=== PATIENT | male | born 1990 | race Two or more races ===

== ENCOUNTER 2022-12-28 08:35 | Inpatient (IN) | payer OTHER ==
[~2022-12-28] VITALS: Ht 167.6 cm; Wt 70.0 kg
[2022-12-28 09:42] LABS: HEMATOCRIT 47.4 % (41-53); HEMOGLOBIN 16.2 g/dL (13.5-17.5); MEAN CORPUSCULAR HEMOGLOBIN 29.3 pg (26.0-34.0); MEAN CORPUSCULAR HGB CONC 34.1 G/dL (31.0-37.0); MEAN CORPUSCULAR VOLUME 86 fL (80-100); PLATELET COUNT (AUTO) 162 K/uL (150-450); RED BLOOD CELL COUNT(AUTO) 5.53 MIL/uL (4.50-5.90); RED CELL DISTRIBUTION WIDTH 13.3 % (11.5-14.5); WHITE BLOOD COUNT (AUTO) 25.3 K/uL (4.5-11.0)
[2022-12-28 09:51] LABS: ANION GAP 13 mmol/L (8-16); CALCIUM, TOTAL 9.1 mg/dL (8.8-10.5); CARBON DIOXIDE 22 mmol/L (22-29); CHLORIDE 94 mmol/L (98-107); CREATININE 1.15 mg/dL (0.60-1.30); GLOMERULAR FILTR. RATE CALC > 60 mL/min (>60); GLUCOSE,RANDOM 137 mg/dL (70-110); POTASSIUM 4.2 mmol/L (3.5-5.1); SODIUM SERUM 129 mmol/L (136-145); UREA NITROGEN, BLOOD 18 mg/dL (7-18)
[2022-12-28 09:55] LABS: INR 1.1 (0.9-1.1); PROTHROMBIN TIME 11.4 SEC (9.4-11.6)
[2022-12-28 09:57] LABS: ALANINE AMINOTRANSFERASE 88 U/L (12-78); ALBUMIN 3.5 g/dL (3.4-5.0); ALKALINE PHOSPHATASE 101 U/L (46-116); ASPARTATE AMINOTRANSFERASE 24 U/L (15-37); BILIRUBIN,TOTAL 1.3 mg/dL (0.1-1.0); CREATINE KINASE, TOTAL ONLY 57 U/L (39-308); TOTAL PROTEIN, SERUM 7.7 g/dL (6.4-8.2)
[2022-12-28 09:58] LABS: B-TYPE NATRIURETIC PEPTIDE 10 pg/mL (0-100)
[2022-12-28 10:06] LABS: BAND NEUTROPHILS % (MANUAL) 9 % (0-5); LYMPHOCYTES % (MANUAL) 7 % (22-44); MONOCYTES % (MANUAL) 8 % (2-9); SEGMENTED NEUTROPHILS % 76 % (40-70); TOTAL CELLS COUNTED 100
[2022-12-28 10:15] LABS: TROPONIN I-HIGH SENSITIVITY Less Than 4 ng/L (<76)
[2022-12-28 10:32] LABS: COVID AG,FIA SOURCE NASAL SWAB
[2022-12-28] MEDS ORDERED: SODIUM CHLORIDE 0.9% 1,000 ML IV ONE (10:35)
[2022-12-28 11:01] LABS: D-DIMER 2.7 mg/L FEU (0.00-0.50)
[2022-12-28 11:03] LABS: INFLUENZA TYPE A NEGATIVE FOR TYPE A (NEGATIVE); INFLUENZA TYPE B NEGATIVE FOR TYPE B (NEGATIVE)
[2022-12-28 11:04] LABS: SARS-COV2 (COVID) ANTIGEN,FIA Negative (Negative)
[2022-12-28] MEDS ORDERED: SODIUM CHLORIDE 0.9% 100 ML ONE (11:05)
[2022-12-28] MEDS ORDERED: IOHEXOL 350 MG/ML 100 ML VIAL ONE (11:05)
[2022-12-28] MEDS ORDERED: *CLINICAL-LEVOFLOXACIN IVPB DOSING CLINICAL ONE (12:45)
[2022-12-28] MEDS ORDERED: MAGNESIUM HYDROXIDE SUSPENSION 30 ML UDCUP PO PRN (12:45)
[2022-12-28] MEDS ORDERED: BISACODYL 10 MG RECTAL RECTAL SUPPOSITORY PR PRN (12:45)
[2022-12-28] MEDS ORDERED: ZOLPIDEM TARTRATE 5 MG TABLET PO PRN (12:45)
[2022-12-28] MEDS: LEVOFLOXACIN 750 MG/D5% WATER 150 ML IV SCH (12:56)
[2022-12-28] MEDS: MORPHINE SULFATE 2 MG/ML SYRINGE IVP PRN ×2 (12:57→18:14)
[2022-12-28] MEDS: HEPARIN SODIUM,PORCINE 5,000 UNITS/ML VIAL SQ SCH (16:33)
[2022-12-28 16:54] LABS: APPEARANCE,URINE CLEAR (CLEAR); BILIRUBIN,URINE NEGATIVE (NEGATIVE); COLOR,URINE YELLOW (YELLOW); GLUCOSE, URINE (UA) NEGATIVE (NEGATIVE); LEUKOCYTE ESTERASE ,URINE NEGATIVE (NEGATIVE); NITRATE,URINE NEGATIVE (NEGATIVE); OCCULT BLOOD,URINE NEGATIVE (NEGATIVE); PROTEIN,URINE 30-70 mg/dL (NEGATIVE); UROBILINOGEN,URINE <=1.0 mg/dL (<=1.0)
[2022-12-28 17:00] LABS: SPECIFIC GRAVITIY, URINE > 1.050 (1.003-1.030)
[2022-12-28 17:07] VITALS: BP 124/73; PULSE 121; RESP 22; TEMP 102.7
[2022-12-28] MEDS: ACETAMINOPHEN 325 MG TABLET PO PRN (17:13)
[2022-12-28 19:58] VITALS: BP 115/73; PULSE 104; RESP 20; TEMP 99.4
[2022-12-28] MEDS: DOCUSATE SODIUM 100 MG CAPSULE PO SCH (20:13)
[2022-12-28] MEDS: HYDROCODONE/ACETAMINOPHEN 5-325 MG TABLET PO PRN (20:13)
[2022-12-29] VITALS (7 sets, daily range): BP systolic 116–141; BP diastolic 64–85; PULSE 99–118; RESP 18–30; TEMP 98.6–102.9; O2SAT 95
[2022-12-29] MEDS: HEPARIN SODIUM,PORCINE 5,000 UNITS/ML VIAL SQ SCH ×3 (00:22→15:49)
[2022-12-29] MEDS: ACETAMINOPHEN 325 MG TABLET PO PRN ×2 (00:23→18:24)
[2022-12-29] MEDS: MORPHINE SULFATE 2 MG/ML SYRINGE IVP PRN ×5 (00:28→21:06)
[2022-12-29 06:13] LABS: BASOPHILS % (AUTO) 0.1 % (0.0-2.0); EOSINOPHILS % (AUTO) 0 % (1.0-6.0); HEMATOCRIT 43.4 % (41-53); HEMOGLOBIN 14.8 g/dL (13.5-17.5); LYMPHOCYTES # (AUTO) 1.7 K/uL (1.0-4.8); LYMPHOCYTES % (AUTO) 7.3 % (22.0-44.0); MEAN CORPUSCULAR HEMOGLOBIN 29.8 pg (26.0-34.0); MEAN CORPUSCULAR HGB CONC 34.2 G/dL (31.0-37.0); MEAN CORPUSCULAR VOLUME 87 fL (80-100); MONOCYTES # (AUTO) 2.4 K/uL (0.1-1.0); MONOCYTES % (AUTO) 10.7 % (2.0-9.0); NEUTROPHILS # (AUTO) 18.7 K/uL (1.8-7.7); NEUTROPHILS % (AUTO) 81.9 % (40.0-70.0); PLATELET COUNT (AUTO) 150 K/uL (150-450); RED BLOOD CELL COUNT(AUTO) 4.97 MIL/uL (4.50-5.90); WHITE BLOOD COUNT (AUTO) 22.9 K/uL (4.5-11.0)
[2022-12-29 06:24] LABS: ANION GAP 7 mmol/L (8-16); CALCIUM, TOTAL 8.9 mg/dL (8.8-10.5); CARBON DIOXIDE 27 mmol/L (22-29); CHLORIDE 96 mmol/L (98-107); CREATININE 1.03 mg/dL (0.60-1.30); GLOMERULAR FILTR. RATE CALC > 60 mL/min (>60); GLUCOSE,RANDOM 113 mg/dL (70-110); POTASSIUM 4.6 mmol/L (3.5-5.1); SODIUM SERUM 130 mmol/L (136-145); UREA NITROGEN, BLOOD 17 mg/dL (7-18)
[2022-12-29] MEDS: DOCUSATE SODIUM 100 MG CAPSULE PO SCH ×2 (08:34→21:06)
[2022-12-29] MEDS: PANTOPRAZOLE SODIUM 40 MG DR TABLET PO SCH (08:34)
[2022-12-29] MEDS: HYDROCODONE/ACETAMINOPHEN 5-325 MG TABLET PO PRN (08:38)
[2022-12-29] MEDS ORDERED: SODIUM CHLORIDE 3% 15 ML NEB SOLUTION NEB ONE (11:09)
[2022-12-29] MEDS ORDERED: SODIUM CHLORIDE 0.9% 250 ML IV ONE (12:31)
[2022-12-29] MEDS: LEVOFLOXACIN 750 MG/D5% WATER 150 ML IV SCH (12:46)
[2022-12-29] MEDS ORDERED: SODIUM CHLORIDE 0.9% 100 ML ONE (13:19)
[2022-12-29] MEDS ORDERED: IOHEXOL 300 MG/ML 100 ML VIAL ONE (13:19)
[2022-12-29 16:52] LABS: MTB PCR w/Rif. Resistance-SPUT NOT DETECTED (Not Detectd)
[2022-12-30] VITALS (12 sets, daily range): BP systolic 113–147; BP diastolic 56–97; PULSE 95–152; RESP 20–60; TEMP 98.7–102.5; O2SAT 95–99
[2022-12-30] MEDS: HEPARIN SODIUM,PORCINE 5,000 UNITS/ML VIAL SQ SCH ×3 (00:19→16:26)
[2022-12-30] MEDS: ACETAMINOPHEN 325 MG TABLET PO PRN ×3 (00:44→20:19)
[2022-12-30] MEDS: MORPHINE SULFATE 2 MG/ML SYRINGE IVP PRN ×5 (00:44→22:41)
[2022-12-30] MEDS: HYDROCODONE/ACETAMINOPHEN 5-325 MG TABLET PO PRN (05:34)
[2022-12-30 06:58] LABS: BASOPHILS % (AUTO) 0.1 % (0.0-2.0); EOSINOPHILS % (AUTO) 0.1 % (1.0-6.0); HEMATOCRIT 41.1 % (41-53); HEMOGLOBIN 14.2 g/dL (13.5-17.5); LYMPHOCYTES # (AUTO) 1.3 K/uL (1.0-4.8); MEAN CORPUSCULAR HEMOGLOBIN 30.2 pg (26.0-34.0); MEAN CORPUSCULAR HGB CONC 34.6 G/dL (31.0-37.0); MEAN CORPUSCULAR VOLUME 87 fL (80-100); MONOCYTES # (AUTO) 2.3 K/uL (0.1-1.0); MONOCYTES % (AUTO) 10.1 % (2.0-9.0); NEUTROPHILS # (AUTO) 18.7 K/uL (1.8-7.7); NEUTROPHILS % (AUTO) 83.7 % (40.0-70.0); PLATELET COUNT (AUTO) 218 K/uL (150-450); RED BLOOD CELL COUNT(AUTO) 4.72 MIL/uL (4.50-5.90); RED CELL DISTRIBUTION WIDTH 13.1 % (11.5-14.5); WHITE BLOOD COUNT (AUTO) 22.4 K/uL (4.5-11.0)
[2022-12-30 07:09] LABS: ANION GAP 6 mmol/L (8-16); CALCIUM, TOTAL 8.6 mg/dL (8.8-10.5); CARBON DIOXIDE 29 mmol/L (22-29); CHLORIDE 96 mmol/L (98-107); CREATININE 0.87 mg/dL (0.60-1.30); GLOMERULAR FILTR. RATE CALC > 60 mL/min (>60); GLUCOSE,RANDOM 109 mg/dL (70-110); POTASSIUM 4.3 mmol/L (3.5-5.1); SODIUM SERUM 131 mmol/L (136-145); UREA NITROGEN, BLOOD 15 mg/dL (7-18)
[2022-12-30] MEDS ORDERED: SODIUM CHLORIDE 3% 15 ML NEB SOLUTION NEB ONE (08:57)
[2022-12-30 09:07] LABS: HIV 1-2 SCREEN 4TH GEN W/RFLX Non Reactive (Non Reactive)
[2022-12-30] MEDS: PANTOPRAZOLE SODIUM 40 MG DR TABLET PO SCH (09:35)
[2022-12-30] MEDS: DOCUSATE SODIUM 100 MG CAPSULE PO SCH ×2 (09:35→20:16)
[2022-12-30 10:07] LABS: HEPATITIS C AB (EIA) Non Reactive (Non Reactive)
[2022-12-30] MEDS: LEVOFLOXACIN 750 MG/D5% WATER 150 ML IV SCH (12:09)
[2022-12-30 14:41] LABS: MTB PCR w/Rif. Resistance-SPUT NOT DETECTED (Not Detectd)
[2022-12-30 15:00] LABS: ALANINE AMINOTRANSFERASE 44 U/L (12-78); ALKALINE PHOSPHATASE 130 U/L (46-116); ASPARTATE AMINOTRANSFERASE 43 U/L (15-37); BILIRUBIN,TOTAL 0.7 mg/dL (0.1-1.0); TOTAL PROTEIN, SERUM 6.7 g/dL (6.4-8.2)
[2022-12-30 15:04] LABS: ALBUMIN 2.3 g/dL (3.4-5.0)
[2022-12-30] MEDS: IPRATROPIUM BROMIDE 0.5 MG/2.5 ML NEB SOLUTION NEB PRN (16:58)
[2022-12-30] MEDS: ALBUTEROL SULFATE 2.5 MG/0.5 ML NEB SOLUTION NEB PRN (16:58)
[2022-12-30 17:45] LABS: ABG BASE EXCESS 4.8 mmol/L (-2.0-3.0); ABG CARBOXYHEMOGLOBIN 0.4 % (0.0-1.5); ABG HCO3 28.3 mmol/L (22.0-26.0); ABG METHEMOGLOBIN 0.3 % (0.0-1.5); ABG OXYGEN CONTENT 20.5 mL/dL (15.0-23.0); ABG OXYGEN SATURATION 98.5 % (95.0-98.0); ABG OXYHEMOGLOBIN 97.8 % (94.0-100.0); ABG PCO2 43 mmHg (35-45); ABG PH 7.442 (7.350-7.450); ABG TOTAL HEMOGLOBIN 14.8 G/dL (12.0-18.0); SOURCE, BLOOD GAS ARTERIAL; TEMPERATURE, FAHRENHEIT, BG 98.6 FAHREN (96.0-98.6)
[2022-12-30 17:46] LABS: ABG A-A DIFF O2 550.6 mmHg (10-20.0); ALLEN TEST, BLOOD GAS Positive; O2 DEVICE,BLOOD GAS HI FL CANNULA (ROOM AIR); SITE, BLOOD GAS RT RADIAL
[2022-12-30] MEDS: MetroNIDAZOLE 500 MG/NACL 100 ML IV SCH (17:47)
[2022-12-30] MEDS: PIPERACILLIN/TAZO 3.375 GM/D5W 50 ML IV SCH (19:48)
[2022-12-30] MEDS ORDERED: SODIUM CHLORIDE 0.9% 250 ML IV ONE (22:15)
[2022-12-30] MEDS: KETOROLAC TROMETHAMINE 15 MG/ML VIAL IVP PRN (22:41)
[2022-12-31] VITALS (10 sets, daily range): BP systolic 106–131; BP diastolic 70–95; PULSE 83–109; RESP 20–34; TEMP 98.4–100.2; O2SAT 94–100
[2022-12-31] MEDS: HEPARIN SODIUM,PORCINE 5,000 UNITS/ML VIAL SQ SCH ×3 (00:47→16:46)
[2022-12-31] MEDS: PIPERACILLIN/TAZO 3.375 GM/D5W 50 ML IV SCH ×4 (00:48→17:44)
[2022-12-31] MEDS: MetroNIDAZOLE 500 MG/NACL 100 ML IV SCH ×3 (00:50→16:45)
[2022-12-31] MEDS: KETOROLAC TROMETHAMINE 15 MG/ML VIAL IVP PRN (05:16)
[2022-12-31 06:04] LABS: BASOPHILS % (AUTO) 0.3 % (0.0-2.0); EOSINOPHILS % (AUTO) 0.3 % (1.0-6.0); HEMATOCRIT 38.7 % (41-53); LYMPHOCYTES # (AUTO) 0.9 K/uL (1.0-4.8); MEAN CORPUSCULAR HEMOGLOBIN 29.9 pg (26.0-34.0); MEAN CORPUSCULAR HGB CONC 33.7 G/dL (31.0-37.0); MEAN CORPUSCULAR VOLUME 89 fL (80-100); MONOCYTES # (AUTO) 2.2 K/uL (0.1-1.0); MONOCYTES % (AUTO) 12.5 % (2.0-9.0); NEUTROPHILS # (AUTO) 14.7 K/uL (1.8-7.7); NEUTROPHILS % (AUTO) 81.9 % (40.0-70.0); PLATELET COUNT (AUTO) 257 K/uL (150-450); RED BLOOD CELL COUNT(AUTO) 4.37 MIL/uL (4.50-5.90); RED CELL DISTRIBUTION WIDTH 13.3 % (11.5-14.5); WHITE BLOOD COUNT (AUTO) 17.9 K/uL (4.5-11.0)
[2022-12-31 06:15] LABS: ANION GAP 7 mmol/L (8-16); CALCIUM, TOTAL 8.8 mg/dL (8.8-10.5); CARBON DIOXIDE 28 mmol/L (22-29); CHLORIDE 97 mmol/L (98-107); CREATININE 0.95 mg/dL (0.60-1.30); GLOMERULAR FILTR. RATE CALC > 60 mL/min (>60); GLUCOSE,RANDOM 111 mg/dL (70-110); SODIUM SERUM 132 mmol/L (136-145); UREA NITROGEN, BLOOD 22 mg/dL (7-18)
[2022-12-31 08:07] LABS: QUANTIFERON+, Nil Value 0.02 IU/mL; QUANTIFERON+,Mitogen Value 0.46 IU/mL; QUANTIFERON+,TB1 Antigen Value 0.01 IU/mL; QUANTIFERON+,TB2 Antigen Value 0.01 IU/mL; QUANTIFERON, TB GOLD PLUS Indeterminate (Negative)
[2022-12-31] MEDS: PANTOPRAZOLE SODIUM 40 MG DR TABLET PO SCH (08:32)
[2022-12-31] MEDS: DOCUSATE SODIUM 100 MG CAPSULE PO SCH ×2 (08:32→20:52)
[2022-12-31] MEDS: ETHYL ALCOHOL 62% ANTISEPTIC NASAL SANITIZER 0.6 ML AMPUL NASAL SCH ×2 (08:32→20:52)
[2022-12-31] MEDS ORDERED: MEBROFENIN TC99M/MCL ISOTOPE 1 EA INJ INJ ONE (09:05)
[2022-12-31] MEDS: LEVOFLOXACIN 750 MG/D5% WATER 150 ML IV SCH (12:17)
[2022-12-31] MEDS: ACETAMINOPHEN 325 MG TABLET PO PRN (17:07)
[2022-12-31] MEDS: HYDROCODONE/ACETAMINOPHEN 5-325 MG TABLET PO PRN (20:52)
[2022-12-31] MEDS: ALBUTEROL SULFATE 2.5 MG/0.5 ML NEB SOLUTION NEB PRN (21:09)
[2022-12-31] MEDS: IPRATROPIUM BROMIDE 0.5 MG/2.5 ML NEB SOLUTION NEB PRN (21:09)
[2023-01-01] VITALS (12 sets, daily range): BP systolic 85–127; BP diastolic 58–76; PULSE 85–110; RESP 16–38; TEMP 99.2–102.1; O2SAT 95–100
[2023-01-01] MEDS: PIPERACILLIN/TAZO 3.375 GM/D5W 50 ML IV SCH ×4 (00:14→18:47)
[2023-01-01] MEDS: MetroNIDAZOLE 500 MG/NACL 100 ML IV SCH ×3 (00:15→17:49)
[2023-01-01] MEDS: HEPARIN SODIUM,PORCINE 5,000 UNITS/ML VIAL SQ SCH ×3 (00:15→17:48)
[2023-01-01] MEDS: HYDROCODONE/ACETAMINOPHEN 5-325 MG TABLET PO PRN (01:38)
[2023-01-01 05:30] LABS: BASOPHILS % (AUTO) 0.8 % (0.0-2.0); EOSINOPHILS % (AUTO) 0.7 % (1.0-6.0); HEMATOCRIT 37.9 % (41-53); HEMOGLOBIN 12.8 g/dL (13.5-17.5); LYMPHOCYTES # (AUTO) 1.1 K/uL (1.0-4.8); LYMPHOCYTES % (AUTO) 6.8 % (22.0-44.0); MEAN CORPUSCULAR HEMOGLOBIN 29.8 pg (26.0-34.0); MEAN CORPUSCULAR HGB CONC 33.8 G/dL (31.0-37.0); MEAN CORPUSCULAR VOLUME 88 fL (80-100); MONOCYTES # (AUTO) 2.1 K/uL (0.1-1.0); MONOCYTES % (AUTO) 13.1 % (2.0-9.0); NEUTROPHILS # (AUTO) 12.4 K/uL (1.8-7.7); NEUTROPHILS % (AUTO) 78.6 % (40.0-70.0); PLATELET COUNT (AUTO) 293 K/uL (150-450); RED BLOOD CELL COUNT(AUTO) 4.31 MIL/uL (4.50-5.90); RED CELL DISTRIBUTION WIDTH 13.5 % (11.5-14.5); WHITE BLOOD COUNT (AUTO) 15.8 K/uL (4.5-11.0)
[2023-01-01] MEDS: MORPHINE SULFATE 2 MG/ML SYRINGE IVP PRN (05:35)
[2023-01-01 05:47] LABS: ANION GAP 8 mmol/L (8-16); CALCIUM, TOTAL 8.1 mg/dL (8.8-10.5); CARBON DIOXIDE 27 mmol/L (22-29); CHLORIDE 98 mmol/L (98-107); CREATININE 0.92 mg/dL (0.60-1.30); GLOMERULAR FILTR. RATE CALC > 60 mL/min (>60); GLUCOSE,RANDOM 109 mg/dL (70-110); POTASSIUM 3.8 mmol/L (3.5-5.1); SODIUM SERUM 133 mmol/L (136-145); UREA NITROGEN, BLOOD 15 mg/dL (7-18)
[2023-01-01] MEDS ORDERED: ROCURONIUM BROMIDE 10 MG/ML 5 ML VIAL ONE ×2 (06:13→06:15)
[2023-01-01] MEDS ORDERED: PROPOFOL 1000 MG/ISO-OSM 100 ML ONE (06:18)
[2023-01-01] MEDS: PROPOFOL 1000 MG/ISO-OSM 100 ML IV PRN ×5 (06:25→22:34)
[2023-01-01] MEDS ORDERED: ROCURONIUM BROMIDE 10 MG/ML 5 ML VIAL IVP ONE (06:45)
[2023-01-01] MEDS ORDERED: ETOMIDATE 2 MG/ML 10 ML VIAL IVP ONE (06:45)
[2023-01-01] MEDS: FentaNYL CIT 1000MCG/0.9% NACL 100 ML IV PRN ×4 (07:51→22:33)
[2023-01-01 09:56] LABS: ABG A-A DIFF O2 563.2 mmHg (10-20.0); ABG BASE EXCESS 2.3 mmol/L (-2.0-3.0); ABG CARBOXYHEMOGLOBIN 0.2 % (0.0-1.5); ABG HCO3 26.3 mmol/L (22.0-26.0); ABG METHEMOGLOBIN 0.4 % (0.0-1.5); ABG OXYGEN CONTENT 20.5 mL/dL (15.0-23.0); ABG OXYGEN SATURATION 96.5 % (95.0-98.0); ABG OXYHEMOGLOBIN 95.9 % (94.0-100.0); ABG PCO2 46 mmHg (35-45); ABG PH 7.394 (7.350-7.450); ABG TOTAL HEMOGLOBIN 15.2 G/dL (12.0-18.0); ALLEN TEST, BLOOD GAS Positive; O2 DEVICE,BLOOD GAS VENTILATOR (ROOM AIR); PO2, ARTERIAL BG 97.8 mmHg (92.0-100.0); SITE, BLOOD GAS LFT RADIAL; SOURCE, BLOOD GAS ARTERIAL; TEMPERATURE, FAHRENHEIT, BG 102.8 FAHREN (96.0-98.6)
[2023-01-01 09:57] LABS: PEEP,BG 5 cm H2O; VT, ABG 420 ml
[2023-01-01] MEDS: PANTOPRAZOLE SODIUM 40 MG DR TABLET PO SCH (09:57)
[2023-01-01] MEDS: ETHYL ALCOHOL 62% ANTISEPTIC NASAL SANITIZER 0.6 ML AMPUL NASAL SCH ×2 (09:57→21:41)
[2023-01-01] MEDS: DOCUSATE SODIUM 100 MG CAPSULE PO SCH (09:57)
[2023-01-01] MEDS: MIDAZOLAM HCL 100 MG in SODIUM CHLORIDE 0.9% 180 ML IV PRN (10:06)
[2023-01-01 13:00] LABS: ABG A-A DIFF O2 374.8 mmHg (10-20.0); ABG CARBOXYHEMOGLOBIN 0.4 % (0.0-1.5); ABG HCO3 25.5 mmol/L (22.0-26.0); ABG OXYGEN CONTENT 19.8 mL/dL (15.0-23.0); ABG OXYHEMOGLOBIN 98.6 % (94.0-100.0); ABG PCO2 42 mmHg (35-45); ABG PH 7.408 (7.350-7.450); ABG TOTAL HEMOGLOBIN 14.1 G/dL (12.0-18.0); ALLEN TEST, BLOOD GAS Positive; O2 DEVICE,BLOOD GAS VENTILATOR (ROOM AIR); PO2, ARTERIAL BG 148.4 mmHg (92.0-100.0); SITE, BLOOD GAS LFT RADIAL; SOURCE, BLOOD GAS ARTERIAL; TEMPERATURE, FAHRENHEIT, BG 101.5 FAHREN (96.0-98.6)
[2023-01-01 13:01] LABS: PEEP,BG 5 cm H2O; VT, ABG 420 ml
[2023-01-01] MEDS: ACETAMINOPHEN 325 MG TABLET PO PRN (13:17)
[2023-01-01] MEDS: LEVOFLOXACIN 750 MG/D5% WATER 150 ML IV SCH (13:39)
[2023-01-01] MEDS ORDERED: ROCURONIUM BROMIDE 10 MG/ML 5 ML VIAL IV ONE (16:40)
[2023-01-01] MEDS ORDERED: ETOMIDATE 2 MG/ML 10 ML VIAL IV ONE (16:40)
[2023-01-01] MEDS ORDERED: MAGNESIUM HYDROXIDE SUSPENSION 30 ML UDCUP NG PRN (20:55)
[2023-01-01] MEDS ORDERED: HYDROCODONE/ACETAMINOPHEN 5-325 MG TABLET NG PRN (20:55)
[2023-01-01] MEDS: DOCUSATE SODIUM 100 MG/10 ML LIQUID UDCUP NG SCH (21:41)
[2023-01-02] VITALS (16 sets, daily range): BP systolic 83–107; BP diastolic 49–65; PULSE 70–112; RESP 16–30; TEMP 98.9–102; O2SAT 91–96
[2023-01-02] MEDS: PIPERACILLIN/TAZO 3.375 GM/D5W 50 ML IV SCH ×4 (00:42→18:18)
[2023-01-02] MEDS: HEPARIN SODIUM,PORCINE 5,000 UNITS/ML VIAL SQ SCH ×3 (00:43→16:13)
[2023-01-02] MEDS: MetroNIDAZOLE 500 MG/NACL 100 ML IV SCH ×3 (00:43→16:13)
[2023-01-02] MEDS: ACETAMINOPHEN 650 MG/20.3 ML SOLUTION UDCUP NG PRN ×3 (00:44→16:21)
[2023-01-02] MEDS: MIDAZOLAM HCL 100 MG in SODIUM CHLORIDE 0.9% 180 ML IV PRN (04:22)
[2023-01-02] MEDS: PROPOFOL 1000 MG/ISO-OSM 100 ML IV PRN ×3 (05:45→18:44)
[2023-01-02 06:49] LABS: BASOPHILS % (AUTO) 0.5 % (0.0-2.0); HEMATOCRIT 37.6 % (41-53); HEMOGLOBIN 12.6 g/dL (13.5-17.5); LYMPHOCYTES # (AUTO) 0.9 K/uL (1.0-4.8); LYMPHOCYTES % (AUTO) 5.5 % (22.0-44.0); MEAN CORPUSCULAR HEMOGLOBIN 29.9 pg (26.0-34.0); MEAN CORPUSCULAR HGB CONC 33.6 G/dL (31.0-37.0); MEAN CORPUSCULAR VOLUME 89 fL (80-100); MONOCYTES # (AUTO) 1.9 K/uL (0.1-1.0); MONOCYTES % (AUTO) 11.4 % (2.0-9.0); NEUTROPHILS # (AUTO) 13.1 K/uL (1.8-7.7); NEUTROPHILS % (AUTO) 80.6 % (40.0-70.0); PLATELET COUNT (AUTO) 307 K/uL (150-450); RED BLOOD CELL COUNT(AUTO) 4.22 MIL/uL (4.50-5.90); RED CELL DISTRIBUTION WIDTH 13.9 % (11.5-14.5); WHITE BLOOD COUNT (AUTO) 16.2 K/uL (4.5-11.0)
[2023-01-02 06:55] LABS: RBC MORPHOLOGY COMMENT NORMAL RBC MORPH
[2023-01-02 07:01] LABS: ANION GAP 9 mmol/L (8-16); CALCIUM, TOTAL 8.1 mg/dL (8.8-10.5); CARBON DIOXIDE 28 mmol/L (22-29); CHLORIDE 99 mmol/L (98-107); CREATININE 0.87 mg/dL (0.60-1.30); GLOMERULAR FILTR. RATE CALC > 60 mL/min (>60); GLUCOSE,RANDOM 98 mg/dL (70-110); POTASSIUM 3.8 mmol/L (3.5-5.1); SODIUM SERUM 136 mmol/L (136-145); UREA NITROGEN, BLOOD 17 mg/dL (7-18)
[2023-01-02] MEDS: ETHYL ALCOHOL 62% ANTISEPTIC NASAL SANITIZER 0.6 ML AMPUL NASAL SCH ×2 (07:53→20:50)
[2023-01-02] MEDS: DOCUSATE SODIUM 100 MG/10 ML LIQUID UDCUP NG SCH ×2 (07:53→20:50)
[2023-01-02] MEDS: LANSOPRAZOLE 15 MG SOLUBLE TABLET NG SCH (07:54)
[2023-01-02 09:01] LABS: GLUCOSE,POINT OF CARE 94 MG/DL (70-110)
[2023-01-02] MEDS: FentaNYL CIT 1000MCG/0.9% NACL 100 ML IV PRN ×2 (09:43→20:50)
[2023-01-02] MEDS: ONDANSETRON HCL 4 MG/2 ML VIAL IVP PRN (10:24)
[2023-01-02] MEDS: DEXMEDETOMIDINE HCL 400 MCG in SODIUM CHLORIDE 0.9% 96 ML IV PRN ×2 (11:58→18:39)
[2023-01-02] MEDS: LEVOFLOXACIN 750 MG/D5% WATER 150 ML IV SCH (12:16)
[2023-01-02 13:57] LABS: PHOSPHORUS 3.7 mg/dL (2.5-4.9)
[2023-01-02 19:41] LABS: GLUCOSE,POINT OF CARE 105 MG/DL (70-110)
[2023-01-03] VITALS (14 sets, daily range): BP systolic 88–110; BP diastolic 54–67; PULSE 19–87; RESP 16–32; TEMP 99.3–103.6; O2SAT 95–96
[2023-01-03] MEDS: HEPARIN SODIUM,PORCINE 5,000 UNITS/ML VIAL SQ SCH ×4 (00:43→23:37)
[2023-01-03] MEDS: PIPERACILLIN/TAZO 3.375 GM/D5W 50 ML IV SCH ×5 (00:44→23:38)
[2023-01-03] MEDS: MetroNIDAZOLE 500 MG/NACL 100 ML IV SCH ×2 (01:30→10:36)
[2023-01-03] MEDS: DEXMEDETOMIDINE HCL 400 MCG in SODIUM CHLORIDE 0.9% 96 ML IV PRN ×3 (05:11→18:58)
[2023-01-03] MEDS: PROPOFOL 1000 MG/ISO-OSM 100 ML IV PRN ×3 (06:18→20:57)
[2023-01-03 07:51] LABS: BASOPHILS % (AUTO) 0.9 % (0.0-2.0); EOSINOPHILS % (AUTO) 1.3 % (1.0-6.0); HEMATOCRIT 37.5 % (41-53); HEMOGLOBIN 12.4 g/dL (13.5-17.5); MEAN CORPUSCULAR HEMOGLOBIN 29.6 pg (26.0-34.0); MEAN CORPUSCULAR HGB CONC 33.1 G/dL (31.0-37.0); MEAN CORPUSCULAR VOLUME 90 fL (80-100); MONOCYTES # (AUTO) 1.8 K/uL (0.1-1.0); MONOCYTES % (AUTO) 10.9 % (2.0-9.0); NEUTROPHILS # (AUTO) 13.4 K/uL (1.8-7.7); NEUTROPHILS % (AUTO) 80.9 % (40.0-70.0); PLATELET COUNT (AUTO) 354 K/uL (150-450); RED BLOOD CELL COUNT(AUTO) 4.19 MIL/uL (4.50-5.90); RED CELL DISTRIBUTION WIDTH 13.8 % (11.5-14.5); WHITE BLOOD COUNT (AUTO) 16.6 K/uL (4.5-11.0)
[2023-01-03 08:00] LABS: ANION GAP 6 mmol/L (8-16); CALCIUM, TOTAL 7.8 mg/dL (8.8-10.5); CARBON DIOXIDE 27 mmol/L (22-29); CHLORIDE 103 mmol/L (98-107); CREATININE 0.91 mg/dL (0.60-1.30); GLOMERULAR FILTR. RATE CALC > 60 mL/min (>60); GLUCOSE,RANDOM 107 mg/dL (70-110); PHOSPHORUS 2.9 mg/dL (2.5-4.9); POTASSIUM 4.1 mmol/L (3.5-5.1); SODIUM SERUM 136 mmol/L (136-145); UREA NITROGEN, BLOOD 18 mg/dL (7-18)
[2023-01-03 09:44] LABS: ABG BASE EXCESS 2.2 mmol/L (-2.0-3.0); ABG CARBOXYHEMOGLOBIN 0.7 % (0.0-1.5); ABG HCO3 26.4 mmol/L (22.0-26.0); ABG METHEMOGLOBIN 0.3 % (0.0-1.5); ABG OXYGEN CONTENT 18.7 mL/dL (15.0-23.0); ABG OXYGEN SATURATION 96.4 % (95.0-98.0); ABG OXYHEMOGLOBIN 95.4 % (94.0-100.0); ABG PCO2 43 mmHg (35-45); ABG PH 7.415 (7.350-7.450); ABG TOTAL HEMOGLOBIN 13.9 G/dL (12.0-18.0); ALLEN TEST, BLOOD GAS Positive; O2 DEVICE,BLOOD GAS VENTILATOR (ROOM AIR); PEEP,BG 5 cm H2O; SITE, BLOOD GAS LFT RADIAL; SOURCE, BLOOD GAS ARTERIAL; TEMPERATURE, FAHRENHEIT, BG 101.9 FAHREN (96.0-98.6); VT, ABG 420 ml
[2023-01-03] MEDS: ONDANSETRON HCL 4 MG/2 ML VIAL IVP PRN (10:15)
[2023-01-03] MEDS: ETHYL ALCOHOL 62% ANTISEPTIC NASAL SANITIZER 0.6 ML AMPUL NASAL SCH ×2 (10:36→20:55)
[2023-01-03] MEDS: DOCUSATE SODIUM 100 MG/10 ML LIQUID UDCUP NG SCH ×2 (10:37→20:55)
[2023-01-03] MEDS: LANSOPRAZOLE 15 MG SOLUBLE TABLET NG SCH (10:37)
[2023-01-03] MEDS ORDERED: SODIUM CHLORIDE 0.9% 250 ML IV ONE (12:38)
[2023-01-03] MEDS: LEVOFLOXACIN 750 MG/D5% WATER 150 ML IV SCH (13:40)
[2023-01-03] MEDS ORDERED: VANCOMYCIN 1GM/WATER(PEG/NADA) 200 ML IV ONE (16:15)
[2023-01-03] MEDS: ACETAMINOPHEN 650 MG/20.3 ML SOLUTION UDCUP NG PRN (18:10)
[2023-01-03 19:41] LABS: GLUCOSE,POINT OF CARE 100 MG/DL (70-110)
[2023-01-03] MEDS: VANCOMYCIN 1GM/WATER(PEG/NADA) 200 ML IV SCH (23:37)
[2023-01-04] VITALS (16 sets, daily range): BP systolic 93–117; BP diastolic 57–76; PULSE 66–108; RESP 20–29; TEMP 99.7–102.2; O2SAT 94–97
[2023-01-04] MEDS: DEXMEDETOMIDINE HCL 400 MCG in SODIUM CHLORIDE 0.9% 96 ML IV PRN ×4 (00:30→20:09)
[2023-01-04] MEDS: FentaNYL CIT 1000MCG/0.9% NACL 100 ML IV PRN ×2 (02:04→18:17)
[2023-01-04] MEDS: ACETAMINOPHEN 650 MG/20.3 ML SOLUTION UDCUP NG PRN ×5 (04:54→21:13)
[2023-01-04] MEDS: ONDANSETRON HCL 4 MG/2 ML VIAL IVP PRN ×2 (04:54→21:13)
[2023-01-04 05:09] LABS: BASOPHILS % (AUTO) 0.2 % (0.0-2.0); EOSINOPHILS % (AUTO) 1.6 % (1.0-6.0); HEMATOCRIT 41.3 % (41-53); HEMOGLOBIN 13.8 g/dL (13.5-17.5); LYMPHOCYTES # (AUTO) 0.9 K/uL (1.0-4.8); LYMPHOCYTES % (AUTO) 6.6 % (22.0-44.0); MEAN CORPUSCULAR HGB CONC 33.4 G/dL (31.0-37.0); MEAN CORPUSCULAR VOLUME 90 fL (80-100); MONOCYTES # (AUTO) 1.4 K/uL (0.1-1.0); NEUTROPHILS # (AUTO) 11.4 K/uL (1.8-7.7); NEUTROPHILS % (AUTO) 81.6 % (40.0-70.0); PLATELET COUNT (AUTO) 331 K/uL (150-450); RED CELL DISTRIBUTION WIDTH 14.2 % (11.5-14.5)
[2023-01-04 05:16] LABS: ANION GAP 8 mmol/L (8-16); CALCIUM, TOTAL 8.4 mg/dL (8.8-10.5); CARBON DIOXIDE 25 mmol/L (22-29); CHLORIDE 103 mmol/L (98-107); CREATININE 0.79 mg/dL (0.60-1.30); GLOMERULAR FILTR. RATE CALC > 60 mL/min (>60); GLUCOSE,RANDOM 117 mg/dL (70-110); POTASSIUM 4.2 mmol/L (3.5-5.1); SODIUM SERUM 136 mmol/L (136-145); UREA NITROGEN, BLOOD 13 mg/dL (7-18)
[2023-01-04] MEDS: PIPERACILLIN/TAZO 3.375 GM/D5W 50 ML IV SCH ×2 (05:49→11:04)
[2023-01-04] MEDS: PROPOFOL 1000 MG/ISO-OSM 100 ML IV PRN ×3 (05:51→21:14)
[2023-01-04] MEDS: LANSOPRAZOLE 15 MG SOLUBLE TABLET NG SCH (08:29)
[2023-01-04] MEDS: DOCUSATE SODIUM 100 MG/10 ML LIQUID UDCUP NG SCH ×2 (08:30→21:13)
[2023-01-04] MEDS: ETHYL ALCOHOL 62% ANTISEPTIC NASAL SANITIZER 0.6 ML AMPUL NASAL SCH ×2 (08:30→21:12)
[2023-01-04] MEDS: VANCOMYCIN 1GM/WATER(PEG/NADA) 200 ML IV SCH ×2 (08:30→16:04)
[2023-01-04] MEDS: HEPARIN SODIUM,PORCINE 5,000 UNITS/ML VIAL SQ SCH ×2 (08:30→16:04)
[2023-01-04] MEDS: METOCLOPRAMIDE HCL 5 MG TABLET PO SCH ×2 (10:22→16:04)
[2023-01-04] MEDS: LEVOFLOXACIN 750 MG/D5% WATER 150 ML IV SCH (12:02)
[2023-01-04 15:10] LABS: SPECIMENTYPE,BODY FLUID PLEURAL
[2023-01-04 15:28] LABS: APPEARANCE,SPUN,BODY FLUID CLEAR (CLEAR); APPEARANCE,UNSPUN,BODY FLUID HAZY (CLEAR); COLOR,BODY FLUID YELLOW (LT YELLOW); TOTAL VOLUME,BODY FLUID 40 mL; WBC, BODY FLUID 13 /cu. mm.
[2023-01-04 15:46] LABS: BASOPHILS,BODY FLUID 0 %; EOSINOPHILS,BF (ANAL) 0 %; LYMPHOCYTES,BODY FLUID 21 %; MONOCYTES,BODY FLUID 10 %; NEUTROPHILS,BODY FLUID 69 %
[2023-01-04] MEDS ORDERED: MetroNIDAZOLE 500 MG TABLET PO SCH (16:00)
[2023-01-04] MEDS: MetroNIDAZOLE 500 MG/NACL 100 ML IV SCH ×2 (17:11→23:21)
[2023-01-04] MEDS ORDERED: SODIUM CHLORIDE 0.9% 250 ML IV ONE (23:30)
[2023-01-05] VITALS (15 sets, daily range): BP systolic 100–119; BP diastolic 56–67; PULSE 64–96; RESP 16–37; TEMP 100.2–102; O2SAT 94–97
[2023-01-05] MEDS: VANCOMYCIN 1GM/WATER(PEG/NADA) 200 ML IV SCH (00:43)
[2023-01-05] MEDS: METOCLOPRAMIDE HCL 5 MG TABLET PO SCH (00:43)
[2023-01-05] MEDS: HEPARIN SODIUM,PORCINE 5,000 UNITS/ML VIAL SQ SCH ×3 (00:43→17:04)
[2023-01-05] MEDS: ACETAMINOPHEN 650 MG/20.3 ML SOLUTION UDCUP NG PRN ×4 (01:19→20:51)
[2023-01-05] MEDS: PROPOFOL 1000 MG/ISO-OSM 100 ML IV PRN ×5 (01:57→22:43)
[2023-01-05] MEDS: DEXMEDETOMIDINE HCL 400 MCG in SODIUM CHLORIDE 0.9% 96 ML IV PRN ×4 (01:58→22:43)
[2023-01-05] MEDS: ONDANSETRON HCL 4 MG/2 ML VIAL IVP PRN (03:17)
[2023-01-05 05:36] LABS: ANION GAP 8 mmol/L (8-16); CALCIUM, TOTAL 8.3 mg/dL (8.8-10.5); CARBON DIOXIDE 25 mmol/L (22-29); CHLORIDE 103 mmol/L (98-107); CREATININE 0.83 mg/dL (0.60-1.30); GLOMERULAR FILTR. RATE CALC > 60 mL/min (>60); GLUCOSE,RANDOM 118 mg/dL (70-110); POTASSIUM 3.9 mmol/L (3.5-5.1); SODIUM SERUM 136 mmol/L (136-145); UREA NITROGEN, BLOOD 13 mg/dL (7-18)
[2023-01-05 05:38] LABS: BASOPHILS % (AUTO) 0.4 % (0.0-2.0); EOSINOPHILS % (AUTO) 0.7 % (1.0-6.0); HEMOGLOBIN 13.1 g/dL (13.5-17.5); LYMPHOCYTES # (AUTO) 0.9 K/uL (1.0-4.8); LYMPHOCYTES % (AUTO) 7.8 % (22.0-44.0); MEAN CORPUSCULAR HEMOGLOBIN 30.1 pg (26.0-34.0); MEAN CORPUSCULAR HGB CONC 33.7 G/dL (31.0-37.0); MEAN CORPUSCULAR VOLUME 89 fL (80-100); MONOCYTES # (AUTO) 1.1 K/uL (0.1-1.0); MONOCYTES % (AUTO) 9.4 % (2.0-9.0); NEUTROPHILS # (AUTO) 9.3 K/uL (1.8-7.7); NEUTROPHILS % (AUTO) 81.7 % (40.0-70.0); PLATELET COUNT (AUTO) 298 K/uL (150-450); RED BLOOD CELL COUNT(AUTO) 4.36 MIL/uL (4.50-5.90); RED CELL DISTRIBUTION WIDTH 13.9 % (11.5-14.5); WHITE BLOOD COUNT (AUTO) 11.4 K/uL (4.5-11.0)
[2023-01-05] MEDS ORDERED: MORPHINE SULFATE 2 MG/ML SYRINGE IVP PRN (08:45)
[2023-01-05] MEDS: MetroNIDAZOLE 500 MG/NACL 100 ML IV SCH (08:53)
[2023-01-05] MEDS: VANCOMYCIN HCL 1.25 GM in DEXTROSE 5%-WATER 250 ML IV SCH ×3 (08:54→20:50)
[2023-01-05] MEDS: METOCLOPRAMIDE HCL 5 MG/ML 2 ML VIAL IVP SCH ×2 (08:55→17:05)
[2023-01-05] MEDS: DOCUSATE SODIUM 100 MG/10 ML LIQUID UDCUP NG SCH ×2 (08:56→20:51)
[2023-01-05] MEDS: ETHYL ALCOHOL 62% ANTISEPTIC NASAL SANITIZER 0.6 ML AMPUL NASAL SCH ×2 (08:56→20:50)
[2023-01-05] MEDS: LANSOPRAZOLE 15 MG SOLUBLE TABLET NG SCH (08:56)
[2023-01-05 09:07] LABS: COCCI IGG TITER COMP.FIX-KERN <1:2; COCCIOIDES AB IGG (ID)-KERN Non Reactive; COCCIOIDES AB IGM (ID)-KERN Non Reactive
[2023-01-05] MEDS ORDERED: LORazepam 2 MG/ML VIAL IM PRN (10:30)
[2023-01-05] MEDS: LEVOFLOXACIN 750 MG/D5% WATER 150 ML IV SCH (13:20)
[2023-01-05] MEDS: FentaNYL CIT 1000MCG/0.9% NACL 100 ML IV PRN ×2 (14:31→20:54)
[2023-01-05] MEDS: DOXYCYCLINE HYCLATE 100 MG in DEXTROSE 5%-WATER 100 ML IV SCH (17:04)
[2023-01-05] MEDS: LORazepam 2 MG/ML VIAL IVP PRN ×2 (18:09→20:51)
[2023-01-06] VITALS (15 sets, daily range): BP systolic 96–142; BP diastolic 56–92; PULSE 62–98; RESP 10–23; TEMP 99.2–100.5; O2SAT 95–100
[2023-01-06] MEDS: METOCLOPRAMIDE HCL 5 MG/ML 2 ML VIAL IVP SCH ×4 (00:33→23:08)
[2023-01-06] MEDS: HEPARIN SODIUM,PORCINE 5,000 UNITS/ML VIAL SQ SCH ×4 (00:34→23:08)
[2023-01-06] MEDS: VANCOMYCIN HCL 1.25 GM in DEXTROSE 5%-WATER 250 ML IV SCH ×2 (02:26→08:58)
[2023-01-06] MEDS: DOXYCYCLINE HYCLATE 100 MG in DEXTROSE 5%-WATER 100 ML IV SCH ×2 (04:13→16:05)
[2023-01-06] MEDS: DEXMEDETOMIDINE HCL 400 MCG in SODIUM CHLORIDE 0.9% 96 ML IV PRN ×3 (04:14→22:00)
[2023-01-06] MEDS: FentaNYL CIT 1000MCG/0.9% NACL 100 ML IV PRN ×3 (04:14→19:15)
[2023-01-06] MEDS: PROPOFOL 1000 MG/ISO-OSM 100 ML IV PRN ×4 (04:15→18:09)
[2023-01-06 06:17] LABS: BASOPHILS % (AUTO) 0.3 % (0.0-2.0); EOSINOPHILS % (AUTO) 0.6 % (1.0-6.0); HEMATOCRIT 38.1 % (41-53); LYMPHOCYTES % (AUTO) 9.2 % (22.0-44.0); MEAN CORPUSCULAR HEMOGLOBIN 30.4 pg (26.0-34.0); MEAN CORPUSCULAR HGB CONC 34.1 G/dL (31.0-37.0); MEAN CORPUSCULAR VOLUME 89 fL (80-100); MONOCYTES # (AUTO) 1.2 K/uL (0.1-1.0); MONOCYTES % (AUTO) 10.7 % (2.0-9.0); NEUTROPHILS # (AUTO) 8.6 K/uL (1.8-7.7); NEUTROPHILS % (AUTO) 79.2 % (40.0-70.0); PLATELET COUNT (AUTO) 299 K/uL (150-450); RED BLOOD CELL COUNT(AUTO) 4.27 MIL/uL (4.50-5.90); RED CELL DISTRIBUTION WIDTH 13.6 % (11.5-14.5); WHITE BLOOD COUNT (AUTO) 10.9 K/uL (4.5-11.0)
[2023-01-06 06:23] LABS: ANION GAP 5 mmol/L (8-16); CALCIUM, TOTAL 8.3 mg/dL (8.8-10.5); CARBON DIOXIDE 28 mmol/L (22-29); CHLORIDE 104 mmol/L (98-107); CREATININE 0.77 mg/dL (0.60-1.30); GLOMERULAR FILTR. RATE CALC > 60 mL/min (>60); GLUCOSE,RANDOM 124 mg/dL (70-110); POTASSIUM 3.5 mmol/L (3.5-5.1); SODIUM SERUM 137 mmol/L (136-145); UREA NITROGEN, BLOOD 8 mg/dL (7-18)
[2023-01-06] MEDS ORDERED: DEXTROSE 5%-0.45% SODIUM CHL 1,000 ML IV ONE (08:15)
[2023-01-06] MEDS: ACETAMINOPHEN 650 MG/20.3 ML SOLUTION UDCUP NG PRN ×3 (08:55→23:08)
[2023-01-06] MEDS: LANSOPRAZOLE 15 MG SOLUBLE TABLET NG SCH (08:56)
[2023-01-06] MEDS: ETHYL ALCOHOL 62% ANTISEPTIC NASAL SANITIZER 0.6 ML AMPUL NASAL SCH ×2 (08:56→20:19)
[2023-01-06] MEDS: DOCUSATE SODIUM 100 MG/10 ML LIQUID UDCUP NG SCH ×2 (08:56→20:19)
[2023-01-06] MEDS: ONDANSETRON HCL 4 MG/2 ML VIAL IVP PRN (08:57)
[2023-01-06] MEDS: KETOROLAC TROMETHAMINE 15 MG/ML VIAL IVP PRN ×2 (10:30→18:08)
[2023-01-06 12:45] LABS: ABG BASE EXCESS -1.3 mmol/L (-2.0-3.0); ABG CARBOXYHEMOGLOBIN 0.6 % (0.0-1.5); ABG HCO3 23.7 mmol/L (22.0-26.0); ABG METHEMOGLOBIN 0.3 % (0.0-1.5); ABG OXYGEN CONTENT 18.8 mL/dL (15.0-23.0); ABG OXYGEN SATURATION 97.2 % (95.0-98.0); ABG OXYHEMOGLOBIN 96.3 % (94.0-100.0); ABG PCO2 39 mmHg (35-45); ABG PH 7.399 (7.350-7.450); ABG TOTAL HEMOGLOBIN 13.8 G/dL (12.0-18.0); PO2, ARTERIAL BG 94.7 mmHg (92.0-100.0); SITE, BLOOD GAS LFT RADIAL; SOURCE, BLOOD GAS ARTERIAL; TEMPERATURE, FAHRENHEIT, BG 99.4 FAHREN (96.0-98.6)
[2023-01-06 12:46] LABS: ABG A-A DIFF O2 145.2 mmHg (10-20.0); ALLEN TEST, BLOOD GAS Positive; O2 DEVICE,BLOOD GAS VENTILATOR (ROOM AIR); PEEP,BG 5 cm H2O; PRESSURE SUPPORT, BG 8 cm H2O; SPONTANEOUS VT, BG 650 ml; VENT MODE, BG Press. Support Vent. (ROOM AIR)
[2023-01-06 13:07] LABS: TOTAL PROTEIN,BODY FLUID,REF 4.5 g/dL
[2023-01-06] MEDS ORDERED: SODIUM CHLORIDE 0.9% 100 ML ONE (13:17)
[2023-01-06] MEDS ORDERED: IOHEXOL 350 MG/ML 100 ML VIAL ONE ×2 (13:17)
[2023-01-06] MEDS ORDERED: ALTEPLASE 10 MG in SODIUM CHLORIDE 0.9% 50 ML IRRIG ONE (16:45)
[2023-01-06 21:41] LABS: APPEARANCE,URINE CLEAR (CLEAR); BILIRUBIN,URINE NEGATIVE (NEGATIVE); COLOR,URINE YELLOW (YELLOW); GLUCOSE, URINE (UA) NEGATIVE (NEGATIVE); KETONES,URINE NEGATIVE (NEGATIVE); LEUKOCYTE ESTERASE ,URINE NEGATIVE (NEGATIVE); NITRATE,URINE NEGATIVE (NEGATIVE); OCCULT BLOOD,URINE NEGATIVE (NEGATIVE); PH,URINE 6.5 (5.0-8.0); PROTEIN,URINE 30-70 mg/dL (NEGATIVE)
[2023-01-06 21:47] LABS: SPECIFIC GRAVITIY, URINE > 1.050 (1.003-1.030)
[2023-01-06 22:10] LABS: BACTERIA,URINE None Seen /HPF (None Seen); RBC,URINE None Seen /HPF (0-2)
[2023-01-06] MEDS: LORazepam 2 MG/ML VIAL IVP PRN (23:09)
[2023-01-06] MEDS: VANCOMYCIN 1GM/WATER(PEG/NADA) 200 ML IV SCH (23:09)
[2023-01-07] VITALS (14 sets, daily range): BP systolic 97–123; BP diastolic 50–58; PULSE 66–81; RESP 16–24; TEMP 99.2–104.2; O2SAT 95–100
[2023-01-07] MEDS: PROPOFOL 1000 MG/ISO-OSM 100 ML IV PRN ×4 (00:30→11:26)
[2023-01-07] MEDS: DOXYCYCLINE HYCLATE 100 MG in DEXTROSE 5%-WATER 100 ML IV SCH ×2 (03:05→16:49)
[2023-01-07] MEDS: FentaNYL CIT 1000MCG/0.9% NACL 100 ML IV PRN ×4 (03:11→23:29)
[2023-01-07] MEDS: ACETAMINOPHEN 650 MG/20.3 ML SOLUTION UDCUP NG PRN ×4 (04:04→23:34)
[2023-01-07 06:18] LABS: ALANINE AMINOTRANSFERASE 80 U/L (12-78); ALBUMIN 1.6 g/dL (3.4-5.0); ALKALINE PHOSPHATASE 245 U/L (46-116); ANION GAP 11 mmol/L (8-16); ASPARTATE AMINOTRANSFERASE 104 U/L (15-37); BILIRUBIN,TOTAL 0.7 mg/dL (0.1-1.0); CALCIUM, TOTAL 8.2 mg/dL (8.8-10.5); CARBON DIOXIDE 26 mmol/L (22-29); CHLORIDE 105 mmol/L (98-107); CREATININE 0.87 mg/dL (0.60-1.30); GLOMERULAR FILTR. RATE CALC > 60 mL/min (>60); GLUCOSE,RANDOM 102 mg/dL (70-110); POTASSIUM 3.7 mmol/L (3.5-5.1); SODIUM SERUM 142 mmol/L (136-145); TOTAL PROTEIN, SERUM 6.5 g/dL (6.4-8.2); UREA NITROGEN, BLOOD 8 mg/dL (7-18)
[2023-01-07] MEDS: ONDANSETRON HCL 4 MG/2 ML VIAL IVP PRN (08:43)
[2023-01-07] MEDS: DOCUSATE SODIUM 100 MG/10 ML LIQUID UDCUP NG SCH ×2 (08:43→21:37)
[2023-01-07] MEDS: DEXMEDETOMIDINE HCL 400 MCG in SODIUM CHLORIDE 0.9% 96 ML IV PRN ×3 (08:43→23:30)
[2023-01-07] MEDS: VANCOMYCIN 1GM/WATER(PEG/NADA) 200 ML IV SCH ×3 (08:43→23:34)
[2023-01-07] MEDS: HEPARIN SODIUM,PORCINE 5,000 UNITS/ML VIAL SQ SCH ×3 (08:44→23:33)
[2023-01-07] MEDS: METOCLOPRAMIDE HCL 5 MG/ML 2 ML VIAL IVP SCH ×3 (08:44→23:33)
[2023-01-07] MEDS: LANSOPRAZOLE 15 MG SOLUBLE TABLET NG SCH (08:44)
[2023-01-07] MEDS: ETHYL ALCOHOL 62% ANTISEPTIC NASAL SANITIZER 0.6 ML AMPUL NASAL SCH ×2 (08:46→21:35)
[2023-01-07] MEDS ORDERED: SODIUM CHLORIDE 0.9% 250 ML IV ONE ×2 (16:44→16:53)
[2023-01-07] MEDS: CEFTAROLINE 600 MG/D5W 250 ML IV SCH ×2 (16:50→23:34)
[2023-01-08] VITALS (12 sets, daily range): BP systolic 111–137; BP diastolic 50–77; PULSE 62–106; RESP 13–20; TEMP 99.1–101.2; O2SAT 97–100
[2023-01-08] MEDS ORDERED: SODIUM CHLORIDE 0.9% 250 ML IV ONE ×2 (00:06→15:21)
[2023-01-08] MEDS: DOXYCYCLINE HYCLATE 100 MG in DEXTROSE 5%-WATER 100 ML IV SCH ×2 (04:33→15:27)
[2023-01-08] MEDS: FentaNYL CIT 1000MCG/0.9% NACL 100 ML IV PRN ×2 (04:37→10:19)
[2023-01-08 05:18] LABS: BASOPHILS % (AUTO) 0.6 % (0.0-2.0); EOSINOPHILS % (AUTO) 0.5 % (1.0-6.0); HEMATOCRIT 36.4 % (41-53); HEMOGLOBIN 12.3 g/dL (13.5-17.5); LYMPHOCYTES # (AUTO) 1.1 K/uL (1.0-4.8); LYMPHOCYTES % (AUTO) 10.5 % (22.0-44.0); MEAN CORPUSCULAR HEMOGLOBIN 29.8 pg (26.0-34.0); MEAN CORPUSCULAR HGB CONC 33.7 G/dL (31.0-37.0); MEAN CORPUSCULAR VOLUME 89 fL (80-100); MONOCYTES # (AUTO) 1.1 K/uL (0.1-1.0); MONOCYTES % (AUTO) 10.7 % (2.0-9.0); NEUTROPHILS # (AUTO) 7.8 K/uL (1.8-7.7); NEUTROPHILS % (AUTO) 77.7 % (40.0-70.0); PLATELET COUNT (AUTO) 356 K/uL (150-450); RED BLOOD CELL COUNT(AUTO) 4.11 MIL/uL (4.50-5.90); RED CELL DISTRIBUTION WIDTH 13.3 % (11.5-14.5)
[2023-01-08 05:41] LABS: LACTIC ACID 0.6 mmol/L (0.4-2.0)
[2023-01-08 05:51] LABS: ALANINE AMINOTRANSFERASE 61 U/L (12-78); ALBUMIN 1.5 g/dL (3.4-5.0); ALKALINE PHOSPHATASE 204 U/L (46-116); AMYLASE 71 U/L (25-115); ANION GAP 8 mmol/L (8-16); ASPARTATE AMINOTRANSFERASE 53 U/L (15-37); BILIRUBIN,TOTAL 0.7 mg/dL (0.1-1.0); CARBON DIOXIDE 26 mmol/L (22-29); CHLORIDE 106 mmol/L (98-107); CHOL/HDL RATIO 7.5 (4.2-7.3); CHOLESTEROL 128 mg/dL (131-200); CREATINE KINASE, TOTAL ONLY 99 U/L (39-308); CREATININE 0.67 mg/dL (0.60-1.30); GLOMERULAR FILTR. RATE CALC > 60 mL/min (>60); GLUCOSE,RANDOM 118 mg/dL (70-110); HDL CHOLESTEROL 17 mg/dL (40-60); LDL CHOL (CALC.) 52 mg/dL (0-130); LIPASE 58 U/L (16-77); POTASSIUM 3.4 mmol/L (3.5-5.1); SODIUM SERUM 140 mmol/L (136-145); TRIGLYCERIDES 296 mg/dL (15-150); UREA NITROGEN, BLOOD 8 mg/dL (7-18); VANCOMYCIN,RANDOM 16.6 mcg/mL (25.0-50.0)
[2023-01-08] MEDS: DEXMEDETOMIDINE HCL 400 MCG in SODIUM CHLORIDE 0.9% 96 ML IV PRN ×2 (06:04→12:20)
[2023-01-08] MEDS: VANCOMYCIN HCL 1.25 GM in DEXTROSE 5%-WATER 250 ML IV SCH ×3 (09:58→23:58)
[2023-01-08] MEDS: ETHYL ALCOHOL 62% ANTISEPTIC NASAL SANITIZER 0.6 ML AMPUL NASAL SCH ×2 (09:58→21:34)
[2023-01-08] MEDS: CEFTAROLINE 600 MG/D5W 250 ML IV SCH ×3 (09:58→23:58)
[2023-01-08] MEDS: METOCLOPRAMIDE HCL 5 MG/ML 2 ML VIAL IVP SCH ×3 (09:58→23:59)
[2023-01-08] MEDS: HEPARIN SODIUM,PORCINE 5,000 UNITS/ML VIAL SQ SCH ×3 (09:59→23:59)
[2023-01-08] MEDS: DOCUSATE SODIUM 100 MG/10 ML LIQUID UDCUP NG SCH ×2 (09:59→21:00)
[2023-01-08] MEDS: ACETAMINOPHEN 650 MG/20.3 ML SOLUTION UDCUP NG PRN ×2 (12:23→21:12)
[2023-01-08] MEDS: ONDANSETRON HCL 4 MG/2 ML VIAL IVP PRN ×2 (14:21→21:10)
[2023-01-08] MEDS ORDERED: POTASSIUM CHL 10 MEQ/WATER 50 ML IV PRN ×3 (15:15)
[2023-01-08] MEDS ORDERED: POTASSIUM CHLORIDE 10% 40 MEQ/30 ML LIQUID UDCUP NG PRN (15:15)
[2023-01-08 15:58] LABS: ABG BASE EXCESS 3.4 mmol/L (-2.0-3.0); ABG CARBOXYHEMOGLOBIN 0.8 % (0.0-1.5); ABG HCO3 27.2 mmol/L (22.0-26.0); ABG METHEMOGLOBIN 0.3 % (0.0-1.5); ABG OXYGEN CONTENT 17.8 mL/dL (15.0-23.0); ABG OXYGEN SATURATION 98.6 % (95.0-98.0); ABG OXYHEMOGLOBIN 97.5 % (94.0-100.0); ABG PCO2 44 mmHg (35-45); ABG PH 7.419 (7.350-7.450); ABG TOTAL HEMOGLOBIN 12.9 G/dL (12.0-18.0); ALLEN TEST, BLOOD GAS Positive; PO2, ARTERIAL BG 120.2 mmHg (92.0-100.0); SITE, BLOOD GAS LFT RADIAL; SOURCE, BLOOD GAS ARTERIAL; TEMPERATURE, FAHRENHEIT, BG 99.8 FAHREN (96.0-98.6)
[2023-01-08 15:59] LABS: ABG A-A DIFF O2 113.5 mmHg (10-20.0); CPAP, BG 5 cm H2O; O2 DEVICE,BLOOD GAS VENTILATOR (ROOM AIR); PRESSURE SUPPORT, BG 8 cm H2O; SPONTANEOUS VT, BG 575 ml; VENT MODE, BG CPAP (ROOM AIR)
[2023-01-08] MEDS: POTASSIUM CHL 10 MEQ/WATER 50 ML IV PRN ×2 (21:13→22:36)
[2023-01-08] MEDS: LANSOPRAZOLE 15 MG SOLUBLE TABLET NG SCH (21:30)
[2023-01-09] VITALS: BP 134/78; PULSE 122; RESP 16; TEMP 100.7
[2023-01-09 04:00] VITALS: BP 124/74; PULSE 96; RESP 16; TEMP 101
[2023-01-09 05:41] LABS: GLUCOSE,POINT OF CARE 110 MG/DL (70-110)
[2023-01-09] MEDS: DOXYCYCLINE HYCLATE 100 MG in DEXTROSE 5%-WATER 100 ML IV SCH ×2 (05:48→16:08)
[2023-01-09 06:28] LABS: BASOPHILS % (AUTO) 0.3 % (0.0-2.0); EOSINOPHILS % (AUTO) 0 % (1.0-6.0); HEMOGLOBIN 12.6 g/dL (13.5-17.5); LYMPHOCYTES # (AUTO) 0.7 K/uL (1.0-4.8); LYMPHOCYTES % (AUTO) 5.9 % (22.0-44.0); MEAN CORPUSCULAR HEMOGLOBIN 29.8 pg (26.0-34.0); MEAN CORPUSCULAR VOLUME 88 fL (80-100); MONOCYTES # (AUTO) 0.9 K/uL (0.1-1.0); MONOCYTES % (AUTO) 7.8 % (2.0-9.0); NEUTROPHILS # (AUTO) 10.3 K/uL (1.8-7.7); PLATELET COUNT (AUTO) 495 K/uL (150-450); RED BLOOD CELL COUNT(AUTO) 4.22 MIL/uL (4.50-5.90); RED CELL DISTRIBUTION WIDTH 13.3 % (11.5-14.5)
[2023-01-09 06:48] LABS: ANION GAP 11 mmol/L (8-16); CALCIUM, TOTAL 8.4 mg/dL (8.8-10.5); CARBON DIOXIDE 26 mmol/L (22-29); CHLORIDE 100 mmol/L (98-107); CREATININE 0.62 mg/dL (0.60-1.30); GLOMERULAR FILTR. RATE CALC > 60 mL/min (>60); GLUCOSE,RANDOM 107 mg/dL (70-110); SODIUM SERUM 137 mmol/L (136-145); UREA NITROGEN, BLOOD 6 mg/dL (7-18)
[2023-01-09] MEDS: CEFTAROLINE 600 MG/D5W 250 ML IV SCH ×2 (07:48→16:07)
[2023-01-09 08:00] VITALS: BP 140/80; PULSE 98; RESP 24; TEMP 100.9
[2023-01-09] MEDS: METOCLOPRAMIDE HCL 5 MG/ML 2 ML VIAL IVP SCH ×2 (08:01→16:20)
[2023-01-09] MEDS: HEPARIN SODIUM,PORCINE 5,000 UNITS/ML VIAL SQ SCH ×2 (08:03→16:20)
[2023-01-09] MEDS: LANSOPRAZOLE 15 MG SOLUBLE TABLET NG SCH (08:03)
[2023-01-09] MEDS: ETHYL ALCOHOL 62% ANTISEPTIC NASAL SANITIZER 0.6 ML AMPUL NASAL SCH ×2 (08:03→22:20)
[2023-01-09] MEDS: ACETAMINOPHEN 650 MG/20.3 ML SOLUTION UDCUP NG PRN ×2 (08:04→17:26)
[2023-01-09] MEDS: ONDANSETRON HCL 4 MG/2 ML VIAL IVP PRN (08:04)
[2023-01-09] MEDS: DOCUSATE SODIUM 100 MG/10 ML LIQUID UDCUP NG SCH ×2 (08:04→21:00)
[2023-01-09] MEDS: VANCOMYCIN HCL 1.25 GM in DEXTROSE 5%-WATER 250 ML IV SCH ×2 (08:10→17:00)
[2023-01-09] MEDS: POTASSIUM CHL 10 MEQ/WATER 50 ML IV PRN ×5 (10:35→14:09)
[2023-01-09 12:00] VITALS: BP 139/80; PULSE 103; RESP 21; TEMP 100.2
[2023-01-09 16:00] VITALS: BP 134/78; PULSE 81; RESP 17; TEMP 99.8
[2023-01-09 20:00] VITALS: BP 147/81; PULSE 87; RESP 15; TEMP 99.6
[2023-01-10] VITALS: BP 141/79; PULSE 76; RESP 18; TEMP 99.7
[2023-01-10] MEDS: CEFTAROLINE 600 MG/D5W 250 ML IV SCH ×4 (00:01→23:52)
[2023-01-10] MEDS: VANCOMYCIN HCL 1.25 GM in DEXTROSE 5%-WATER 250 ML IV SCH ×4 (00:01→23:52)
[2023-01-10] MEDS: DOXYCYCLINE HYCLATE 100 MG in DEXTROSE 5%-WATER 100 ML IV SCH ×2 (03:50→16:13)
[2023-01-10 04:00] VITALS: BP 122/70; PULSE 86; RESP 17; TEMP 100.1
[2023-01-10 05:26] LABS: BASOPHILS % (AUTO) 0.8 % (0.0-2.0); EOSINOPHILS % (AUTO) 0.5 % (1.0-6.0); HEMATOCRIT 38.4 % (41-53); HEMOGLOBIN 13.1 g/dL (13.5-17.5); LYMPHOCYTES # (AUTO) 0.9 K/uL (1.0-4.8); LYMPHOCYTES % (AUTO) 10.3 % (22.0-44.0); MEAN CORPUSCULAR HEMOGLOBIN 29.8 pg (26.0-34.0); MEAN CORPUSCULAR VOLUME 88 fL (80-100); MONOCYTES % (AUTO) 11.1 % (2.0-9.0); NEUTROPHILS # (AUTO) 6.9 K/uL (1.8-7.7); NEUTROPHILS % (AUTO) 77.3 % (40.0-70.0); PLATELET COUNT (AUTO) 545 K/uL (150-450); RED BLOOD CELL COUNT(AUTO) 4.38 MIL/uL (4.50-5.90); RED CELL DISTRIBUTION WIDTH 13.1 % (11.5-14.5); WHITE BLOOD COUNT (AUTO) 8.9 K/uL (4.5-11.0)
[2023-01-10 05:58] LABS: ALANINE AMINOTRANSFERASE 96 U/L (12-78); ALKALINE PHOSPHATASE 244 U/L (46-116); ANION GAP 9 mmol/L (8-16); ASPARTATE AMINOTRANSFERASE 73 U/L (15-37); BILIRUBIN,TOTAL 0.7 mg/dL (0.1-1.0); CALCIUM, TOTAL 8.5 mg/dL (8.8-10.5); CARBON DIOXIDE 26 mmol/L (22-29); CHLORIDE 103 mmol/L (98-107); GLOMERULAR FILTR. RATE CALC > 60 mL/min (>60); GLUCOSE,RANDOM 114 mg/dL (70-110); POTASSIUM 3.2 mmol/L (3.5-5.1); SODIUM SERUM 138 mmol/L (136-145); UREA NITROGEN, BLOOD 6 mg/dL (7-18)
[2023-01-10] MEDS: POTASSIUM CHLORIDE 20 MEQ ER TABLET PO PRN (06:24)
[2023-01-10 08:00] VITALS: BP 130/70; PULSE 86; RESP 21; TEMP 100.2
[2023-01-10] MEDS: METOCLOPRAMIDE HCL 5 MG/ML 2 ML VIAL IVP SCH ×4 (08:00→23:51)
[2023-01-10] MEDS: DOCUSATE SODIUM 100 MG/10 ML LIQUID UDCUP NG SCH ×2 (09:00→21:00)
[2023-01-10] MEDS: ETHYL ALCOHOL 62% ANTISEPTIC NASAL SANITIZER 0.6 ML AMPUL NASAL SCH ×2 (09:09→21:40)
[2023-01-10] MEDS: LANSOPRAZOLE 15 MG SOLUBLE TABLET NG SCH (09:10)
[2023-01-10] MEDS: HEPARIN SODIUM,PORCINE 5,000 UNITS/ML VIAL SQ SCH ×4 (09:10→23:51)
[2023-01-10] MEDS: ACETAMINOPHEN 650 MG/20.3 ML SOLUTION UDCUP NG PRN (10:49)
[2023-01-10 12:00] VITALS: BP 148/76; PULSE 94; RESP 22; TEMP 100.1
[2023-01-10 14:19] VITALS: BP 144/75; PULSE 79; RESP 19; TEMP 98.8
[2023-01-10] MEDS ORDERED: SODIUM CHLORIDE 0.9% 250 ML IV ONE (16:17)
[2023-01-10 20:28] VITALS: BP 122/59; PULSE 113; RESP 19; TEMP 98.9
[2023-01-11 00:36] VITALS: BP 131/79; PULSE 91; RESP 17; TEMP 98.9
[2023-01-11] MEDS: DOXYCYCLINE HYCLATE 100 MG in DEXTROSE 5%-WATER 100 ML IV SCH (04:11)
[2023-01-11 06:01] VITALS: BP 135/69; PULSE 102; RESP 17; TEMP 98.7
[2023-01-11 07:33] LABS: ANION GAP 9 mmol/L (8-16); CALCIUM, TOTAL 8.4 mg/dL (8.8-10.5); CARBON DIOXIDE 26 mmol/L (22-29); CHLORIDE 101 mmol/L (98-107); CREATININE 1.07 mg/dL (0.60-1.30); GLOMERULAR FILTR. RATE CALC > 60 mL/min (>60); GLUCOSE,RANDOM 116 mg/dL (70-110); POTASSIUM 3.2 mmol/L (3.5-5.1); SODIUM SERUM 136 mmol/L (136-145); UREA NITROGEN, BLOOD 8 mg/dL (7-18)
[2023-01-11] MEDS: METOCLOPRAMIDE HCL 5 MG/ML 2 ML VIAL IVP SCH ×2 (08:00→16:00)
[2023-01-11] MEDS: VANCOMYCIN HCL 1.25 GM in DEXTROSE 5%-WATER 250 ML IV SCH ×2 (08:35→17:01)
[2023-01-11] MEDS: CEFTAROLINE 600 MG/D5W 250 ML IV SCH (08:35)
[2023-01-11] MEDS: ACETAMINOPHEN 650 MG/20.3 ML SOLUTION UDCUP NG PRN (08:35)
[2023-01-11] MEDS: DOCUSATE SODIUM 100 MG/10 ML LIQUID UDCUP NG SCH ×2 (08:36→21:00)
[2023-01-11] MEDS: ETHYL ALCOHOL 62% ANTISEPTIC NASAL SANITIZER 0.6 ML AMPUL NASAL SCH ×2 (08:36→21:27)
[2023-01-11] MEDS: HEPARIN SODIUM,PORCINE 5,000 UNITS/ML VIAL SQ SCH ×2 (08:36→17:01)
[2023-01-11] MEDS: LANSOPRAZOLE 15 MG SOLUBLE TABLET NG SCH (08:37)
[2023-01-11 08:40] VITALS: BP 112/82; PULSE 108; RESP 18; TEMP 98.9
[2023-01-11] MEDS: POTASSIUM CHLORIDE 20 MEQ ER TABLET PO PRN (09:09)
[2023-01-11 12:26] VITALS: BP 120/68; PULSE 105; RESP 18; TEMP 98.9
[2023-01-11 16:39] VITALS: BP 117/60; PULSE 101; RESP 18; TEMP 99.1
[2023-01-11] MEDS ORDERED: CEFTAROLINE 600 MG/D5W 250 ML IV SCH (20:00)
[2023-01-11] MEDS: MELATONIN 3 MG TABLET PO PRN (21:27)
[2023-01-12 00:14] VITALS: BP 122/72; PULSE 94; RESP 18; TEMP 99.5
[2023-01-12] MEDS: METOCLOPRAMIDE HCL 5 MG/ML 2 ML VIAL IVP SCH ×4 (00:16→23:40)
[2023-01-12] MEDS: HEPARIN SODIUM,PORCINE 5,000 UNITS/ML VIAL SQ SCH ×4 (00:17→23:40)
[2023-01-12] MEDS: VANCOMYCIN HCL 1.25 GM in DEXTROSE 5%-WATER 250 ML IV SCH (00:17)
[2023-01-12 06:15] VITALS: BP 118/74; PULSE 105; RESP 18; TEMP 98.6
[2023-01-12 07:39] LABS: BASOPHILS % (AUTO) 0.8 % (0.0-2.0); EOSINOPHILS % (AUTO) 0.4 % (1.0-6.0); HEMATOCRIT 38.5 % (41-53); HEMOGLOBIN 12.9 g/dL (13.5-17.5); LYMPHOCYTES # (AUTO) 1.1 K/uL (1.0-4.8); LYMPHOCYTES % (AUTO) 9.6 % (22.0-44.0); MEAN CORPUSCULAR HEMOGLOBIN 29.7 pg (26.0-34.0); MEAN CORPUSCULAR HGB CONC 33.6 G/dL (31.0-37.0); MEAN CORPUSCULAR VOLUME 89 fL (80-100); MONOCYTES # (AUTO) 1.2 K/uL (0.1-1.0); NEUTROPHILS # (AUTO) 9.4 K/uL (1.8-7.7); NEUTROPHILS % (AUTO) 79.2 % (40.0-70.0); PLATELET COUNT (AUTO) 475 K/uL (150-450); RED BLOOD CELL COUNT(AUTO) 4.35 MIL/uL (4.50-5.90); RED CELL DISTRIBUTION WIDTH 13.5 % (11.5-14.5); WHITE BLOOD COUNT (AUTO) 11.9 K/uL (4.5-11.0)
[2023-01-12 07:41] LABS: CALCIUM, TOTAL 8.9 mg/dL (8.8-10.5); CREATININE 1.38 mg/dL (0.60-1.30); POTASSIUM 3.6 mmol/L (3.5-5.1); RBC MORPHOLOGY COMMENT NORMAL RBC MORPH; VANCOMYCIN,RANDOM 40.6 mcg/mL (25.0-50.0)
[2023-01-12 07:42] VITALS: BP 113/70; PULSE 101; RESP 18; TEMP 98
[2023-01-12] MEDS ORDERED: VANCOMYCIN HCL 1 GM in DEXTROSE 5%-WATER 250 ML IV PRN (08:15)
[2023-01-12] MEDS: DOCUSATE SODIUM 100 MG/10 ML LIQUID UDCUP NG SCH ×2 (09:00→21:00)
[2023-01-12] MEDS: ETHYL ALCOHOL 62% ANTISEPTIC NASAL SANITIZER 0.6 ML AMPUL NASAL SCH ×2 (09:28→20:41)
[2023-01-12] MEDS: LANSOPRAZOLE 15 MG SOLUBLE TABLET NG SCH (09:30)
[2023-01-12 15:59] VITALS: BP 112/71; PULSE 115; RESP 18; TEMP 99.9
[2023-01-12 20:49] VITALS: BP 135/75; PULSE 103; RESP 18; TEMP 99.1
[2023-01-12] MEDS: MELATONIN 3 MG TABLET PO PRN (21:47)
[2023-01-13 00:47] VITALS: BP 118/68; PULSE 97; RESP 20; TEMP 98.8
[2023-01-13 04:11] VITALS: BP 111/58; PULSE 102; RESP 20; TEMP 99.7
[2023-01-13 07:15] LABS: CALCIUM, TOTAL 8.9 mg/dL (8.8-10.5); CREATININE 1.42 mg/dL (0.60-1.30); POTASSIUM 3.6 mmol/L (3.5-5.1); VANCOMYCIN,RANDOM 10.5 mcg/mL (25.0-50.0)
[2023-01-13 07:39] VITALS: BP 118/71; PULSE 92; RESP 20; TEMP 100
[2023-01-13] MEDS: METOCLOPRAMIDE HCL 5 MG/ML 2 ML VIAL IVP SCH ×3 (08:00→23:43)
[2023-01-13] MEDS: VANCOMYCIN HCL 750 MG in DEXTROSE 5%-WATER 250 ML IV SCH ×2 (08:40→19:41)
[2023-01-13] MEDS: HEPARIN SODIUM,PORCINE 5,000 UNITS/ML VIAL SQ SCH ×3 (08:42→23:44)
[2023-01-13] MEDS: DOCUSATE SODIUM 100 MG/10 ML LIQUID UDCUP NG SCH ×2 (08:43→19:47)
[2023-01-13] MEDS: LANSOPRAZOLE 15 MG SOLUBLE TABLET NG SCH (08:43)
[2023-01-13] MEDS: ETHYL ALCOHOL 62% ANTISEPTIC NASAL SANITIZER 0.6 ML AMPUL NASAL SCH ×2 (08:43→19:41)
[2023-01-13 12:00] VITALS: BP 120/69; PULSE 85; RESP 20; TEMP 98.9
[2023-01-13 16:08] VITALS: BP 126/74; PULSE 87; RESP 20; TEMP 98.8
[2023-01-13 19:45] VITALS: BP 162/97; PULSE 96; RESP 18; TEMP 97.9
[2023-01-13] MEDS: MELATONIN 3 MG TABLET PO PRN (20:34)
[2023-01-14 00:06] VITALS: BP 124/78; PULSE 103; RESP 18; TEMP 98.9
[2023-01-14 05:59] VITALS: BP 143/76; PULSE 97; RESP 18; TEMP 98.5
[2023-01-14 07:25] LABS: CALCIUM, TOTAL 8.9 mg/dL (8.8-10.5); CREATININE 1.41 mg/dL (0.60-1.30); POTASSIUM 3.6 mmol/L (3.5-5.1); VANCOMYCIN,RANDOM 17.9 mcg/mL (25.0-50.0)
[2023-01-14 07:43] VITALS: BP 113/84; PULSE 99; RESP 20; TEMP 98.6
[2023-01-14] MEDS: VANCOMYCIN HCL 750 MG in DEXTROSE 5%-WATER 250 ML IV SCH ×2 (08:08→19:29)
[2023-01-14] MEDS: DOCUSATE SODIUM 100 MG/10 ML LIQUID UDCUP NG SCH ×2 (08:09→21:00)
[2023-01-14] MEDS: LANSOPRAZOLE 15 MG SOLUBLE TABLET NG SCH (08:09)
[2023-01-14] MEDS: ETHYL ALCOHOL 62% ANTISEPTIC NASAL SANITIZER 0.6 ML AMPUL NASAL SCH ×2 (08:09→19:29)
[2023-01-14] MEDS: METOCLOPRAMIDE HCL 5 MG/ML 2 ML VIAL IVP SCH ×2 (08:10→16:17)
[2023-01-14] MEDS: HEPARIN SODIUM,PORCINE 5,000 UNITS/ML VIAL SQ SCH ×2 (08:10→16:17)
[2023-01-14] MEDS ORDERED: ALBU2.5V39 NEB (14:08)
[2023-01-14] MEDS ORDERED: BISA-72 PO (14:09)
[2023-01-14] MEDS ORDERED: DOCU100C33 PO (14:09)
[2023-01-14] MEDS ORDERED: HEPA500018 SQ (14:14)
[2023-01-14] MEDS ORDERED: LANS30TA4 PO (14:15)
[2023-01-14] MEDS ORDERED: VANC125C6 PO (14:22)
[2023-01-14] MEDS ORDERED: VANC1.2529 IV (14:29)
[2023-01-14] MEDS ORDERED: SODIUM CHLORIDE 0.9% 50 ML ONE (19:35)
[2023-01-14 20:04] VITALS: BP 125/72; PULSE 99; RESP 20; TEMP 100.4
[2023-01-14] MEDS ORDERED: ACETAMINOPHEN 325 MG TABLET PO PRN (20:15)
[2023-01-14] MEDS ORDERED: ACETAMINOPHEN 650 MG/20.3 ML SOLUTION UDCUP PO PRN (21:00)
== END 2023-01-14 22:49 | DRG 870 ==
LOC: EMS 08:36 → 5S 14:59 → 5N 12-29 10:35 → ICU 12-30 21:59 → 5S 01-10 13:45
PROVIDERS: ADMIT Internal Medicine; ATTEND Hospitalist
PROC: 0BH17EZ Insertion of Endotracheal Airway into Trachea, Via Natural or Artificial Opening (ICD-10-PCS; principal; 2023-01-01)
PROC: 5A1955Z Respiratory Ventilation, Greater than 96 Consecutive Hours (ICD-10-PCS; 2023-01-01)
PROC: 0W9930Z Drainage of Right Pleural Cavity with Drainage Device, Percutaneous Approach (ICD-10-PCS; 2023-01-01)
PROC: 05HB33Z Insertion of Infusion Device into Right Basilic Vein, Percutaneous Approach (ICD-10-PCS; 2023-01-02)
PROC: B54MZZA Ultrasonography of Right Upper Extremity Veins, Guidance (ICD-10-PCS; 2023-01-02)
PROC: 3E0L3GC Introduction of Other Therapeutic Substance into Pleural Cavity, Percutaneous Approach (ICD-10-PCS; 2023-01-06)
PROC: 05HC33Z Insertion of Infusion Device into Left Basilic Vein, Percutaneous Approach (ICD-10-PCS; 2023-01-06)
PROC: B54NZZA Ultrasonography of Left Upper Extremity Veins, Guidance (ICD-10-PCS; 2023-01-06)
DX: A41.02 Sepsis due to Methicillin resistant Staphylococcus aureus (principal); J15.212 Pneumonia due to Methicillin resistant Staphylococcus aureus; J96.01 Acute respiratory failure with hypoxia; J86.9 Pyothorax without fistula; J69.0 Pneumonitis due to inhalation of food and vomit; K83.1 Obstruction of bile duct; E87.1 Hypo-osmolality and hyponatremia; J98.11 Atelectasis; Z99.11 Dependence on respirator [ventilator] status; J91.8 Pleural effusion in other conditions classified elsewhere; N17.9 Acute kidney failure, unspecified; Z20.822 Contact with and (suspected) exposure to COVID-19; R91.1 Solitary pulmonary nodule; E87.6 Hypokalemia; R10.9 Unspecified abdominal pain; R74.8 Abnormal levels of other serum enzymes; R63.0 Anorexia; Z68.24 Body mass index [BMI] 24.0-24.9, adult
CPT/HCPCS: 36245; 36569; 36600; 71045; 71046; 71260; 71275; 72193; 74018; 74160; 74177; 76937; 77012; 78226; 80048; 80053; 80061; 80076; 80202; 81001; 81003; 82150; 82465; 82550; 82805; 82945; 82962; 83605; 83615; 83690; 83735; 83880; 83986; 84100; 84132; 84145; 84157; 84484; 85025; 85379; 85610; 85730; 86171; 86480; 86635; 86803; 87015; 87040; 87070; 87075; 87077; 87081; 87101; 87186; 87205; 87206; 87340; 87389; 87420; 87556; 87804; 88112; 88305; 89051; 92526; 92610; 93005; 93306; 94002; 94003; 94640; 94760; 94761; 97110; 97116; 97163; 97165; 97530; 99291; A9537; G0378; J0712; J1644; J1956; J2060; J2250; J2270; J2405; J2543; J2704; J2765; J2997; J3370; J3480; J3490; J7050; J7060; Q9967; 36415-L1; 36415-TC; J7613